=== PATIENT | female | born 2000 | race Hispanic/Latino ===

== ENCOUNTER 2019-11-08 01:21 | Emergency (ER) | payer BC, OTHER ==
[2019-11-08] MEDS ORDERED: Bacitracin 1 PK ONE (01:32)
== END 2019-11-08 01:35 | disposition home or self-care (01) ==
LOC: NAV ERS 01:21
DX: T20.15XA Burn of first degree of scalp [any part], initial encounter (principal); D64.9 Anemia, unspecified; K58.9 Irritable bowel syndrome, unspecified; Z79.899 Other long term (current) drug therapy; X08.8XXA Exposure to other specified smoke, fire and flames, initial encounter
CPT/HCPCS: 16000